=== PATIENT | female | born 1940 | race Caucasian/White ===

== ENCOUNTER 2018-02-26 12:03 | Inpatient (IN) ==
[2018-03-02 11:56] VITALS: BP 125/78
== END 2018-03-02 13:20 | disposition home health service (06) | DRG 391 ==
LOC: N.ED 12:03 → N.EDINP 17:56 → N.TELES 18:49
PROVIDERS: ADMIT Family Medicine; ATTEND Family Medicine

== ENCOUNTER 2019-07-11 17:14 | Inpatient (IN) ==
[2019-07-11] MEDS ORDERED: ALBUTEROL/IPRATROPIUM 3 ML NEB RESP TX STA (18:04)
[2019-07-11] MEDS ORDERED: ONDANSETRON 4 MG/2 ML VIAL IV STA (18:04)
[2019-07-11] MEDS ORDERED: FUROSEMIDE 40 MG/4 ML VIAL IV STA (18:04)
[2019-07-11 19:12] LABS: Basophils % 0.4 % (0.0-0.8); Eosinophils # 0.4 10*3/uL (0.0-0.87); Eosinophils % 4.7 % (0.00-10.9); Hematocrit 43.2 VOL% (35.7-47.0); Hemoglobin 14.8 GM/DL (12.0-16.0); Immature Granulocytes % 0.4 %; Immature Granulocytes Absolute 0.03 #; Lymphocytes # 1.9 10*3/uL (1.4-4.0); Lymphocytes % 24.5 % (21.3-54.2); Mean Corpuscular HGB Conc 34.3 GM/DL (32-36); Mean Corpuscular Volume 87.8 FL (87-102); Mean Platelet Volume 10.1 FL (9.6-12.0); Monocytes % 10.5 % (1.7-12.7); Neutrophils % 59.5 % (38.7-73.9); Platelet Count 238 T/CUMM (130-400); Red Blood Count 4.92 MC/CUMM (3.8-5.5); Red Cell Distribution Width 13.3 % (9.3-17.3); White Blood Count 7.9 T/CUMM (4-12)
[2019-07-11 19:26] LABS: Apearance,Urine CLEAR (Clear); Bacteria,Urine Many /HPF (Few); Bilirubin,Urine Negative (Negative); Blood, Urine Negative (Negative); Glucose,Urine (UA) Negative (Negative); Ketones,Urine Negative (Negative); Mucus,Urine Occasional /LPF (Occasional); Nitrite,Urine Positive (Negative); Protein,Urine Negative; RBC,Urine <1 /HPF (0-4); Urine Color Yellow (Yellow); Urine Specific Gravity 1.012 (1.001-1.035); Urine Urobilinogen < 2.0 EU/DL (0.2-1.0)
[2019-07-11 19:31] LABS: INR 2.3
[2019-07-11 19:32] LABS: PT Patient Result 25.3 SECS (9.6-12.2)
[2019-07-11 19:55] LABS: Albumin 3.9 G/DL (3.4-5.0); Bilirubin,Total 0.6 MG/DL (0.2-1.0); Calcium 8.9 MG/DL (8.5-10.1); Osmolality,Calculated 286.4 MOS/KG (273-304); Total Protein 6.6 G/DL (6.4-8.3)
[2019-07-11] MEDS: cefTRIAXone 1,000 MG in SODIUM CHLORIDE 0.9% 100 ML IV STA ×2 (20:07→20:18)
[2019-07-11] MEDS ORDERED: ACETAMINOPHEN 325 MG TABLET PO PRN (20:43)
[2019-07-11] MEDS ORDERED: ONDANSETRON 4 MG/2 ML VIAL IV PRN (20:43)
[2019-07-11] MEDS ORDERED: ALBUTEROL/IPRATROPIUM 3 ML NEB RESP TX PRN ×2 (20:43)
[2019-07-11] MEDS ORDERED: MORPHINE 4 MG/1 ML VIAL IV PRN (20:43)
[2019-07-11] MEDS: DONEPEZIL 10 MG TABLET PO SCH (22:11)
[2019-07-11] MEDS: WARFARIN 2.5 MG TABLET PO SCH (22:11)
[2019-07-11] MEDS: SIMVASTATIN 40 MG TABLET PO SCH (22:11)
[2019-07-11] MEDS: SODIUM CHLORIDE 0.9% 1,000 ML IV SCH (22:12)
[2019-07-11] MEDS: MEMANTINE 10 MG TABLET PO SCH (22:12)
[2019-07-11] MEDS: QUEtiapine 25 MG TABLET PO SCH (22:12)
[2019-07-11] MEDS: DOCUSATE SODIUM 100 MG CAPSULE PO SCH (22:12)
[2019-07-12 06:14] LABS: Basophils % 0.3 % (0.0-0.8); Eosinophils # 0.4 10*3/uL (0.0-0.87); Eosinophils % 5.5 % (0.00-10.9); Hematocrit 40.4 VOL% (35.7-47.0); Hemoglobin 13.8 GM/DL (12.0-16.0); Immature Granulocytes % 0.3 %; Immature Granulocytes Absolute 0.02 #; Lymphocytes # 1.8 10*3/uL (1.4-4.0); Lymphocytes % 26.8 % (21.3-54.2); Mean Corpuscular HGB Conc 34.2 GM/DL (32-36); Mean Platelet Volume 10.5 FL (9.6-12.0); Monocytes % 9.9 % (1.7-12.7); Neutrophils % 57.2 % (38.7-73.9); Platelet Count 210 T/CUMM (130-400); Red Blood Count 4.59 MC/CUMM (3.8-5.5); Red Cell Distribution Width 13.4 % (9.3-17.3); White Blood Count 6.7 T/CUMM (4-12)
[2019-07-12 06:39] LABS: Albumin 3.4 G/DL (3.4-5.0); Osmolality,Calculated 288.1 MOS/KG (273-304); Risk Ratio 1.97; Total Protein 6.3 G/DL (6.4-8.3); VLDL CHOLESTEROL 16.4 MG/DL
[2019-07-12 07:03] LABS: Apearance,Urine CLEAR (Clear); Bacteria,Urine Few /HPF (Few); Bilirubin,Urine Negative (Negative); Blood, Urine Negative (Negative); Glucose,Urine (UA) Negative (Negative); Hyaline Casts,Urine 1 /LPF (0-3); Ketones,Urine Negative (Negative); Nitrite,Urine Negative (Negative); Protein,Urine Negative; RBC,Urine 3 /HPF (0-4); Squamous Epithelial Cell,Urine Occasional /HPF (0-10); Urine Color Yellow (Yellow); Urine Urobilinogen < 2.0 EU/DL (0.2-1.0); WBC,Urine 36 /HPF (0-6)
[2019-07-12] MEDS ORDERED: CYANOCOBALAMIN 1000 MCG/1 ML VIAL SUBCUT SCH (09:00)
[2019-07-12] MEDS ORDERED: PANTOPRAZOLE 40 MG VIAL IV SCH (09:00)
[2019-07-12] MEDS: FUROSEMIDE 40 MG/4 ML VIAL IV SCH ×2 (09:17→16:20)
[2019-07-12] MEDS: MULTIVITAMIN (CENTRUM) TABLET PO SCH (09:18)
[2019-07-12] MEDS: ASPIRIN EC 325 MG TABLET PO SCH (09:19)
[2019-07-12] MEDS: DOCUSATE SODIUM 100 MG CAPSULE PO SCH ×2 (09:19→20:46)
[2019-07-12] MEDS: Mirabegron [Myrbetriq] 50 MG PO SCH (09:20)
[2019-07-12] MEDS: amLODIPine 10 MG TABLET PO SCH (09:21)
[2019-07-12] MEDS: PANTOPRAZOLE 40 MG TABLET PO SCH (12:24)
[2019-07-12] MEDS: TRIAMTERENE/HCTZ 37.5-25 MG TABLET PO SCH (12:24)
[2019-07-12] MEDS: CELECOXIB 200 MG CAPSULE PO SCH (12:24)
[2019-07-12] MEDS: MEMANTINE 10 MG TABLET PO SCH ×2 (12:24→20:46)
[2019-07-12] MEDS ORDERED: TUBERCULIN SKIN TEST 0.1 ML SYRINGE INTRADERM ONE (15:53)
[2019-07-12] MEDS: WARFARIN 5 MG TABLET PO SCH (17:52)
[2019-07-12] MEDS: QUEtiapine 25 MG TABLET PO SCH (20:46)
[2019-07-12] MEDS: DONEPEZIL 10 MG TABLET PO SCH (20:46)
[2019-07-12] MEDS: SIMVASTATIN 40 MG TABLET PO SCH (20:46)
[2019-07-12] MEDS: cefTRIAXone 1,000 MG in SYRINGE 1 EACH IV SCH (20:47)
[2019-07-13] MEDS: ASPIRIN EC 325 MG TABLET PO SCH (09:30)
[2019-07-13] MEDS: MULTIVITAMIN (CENTRUM) TABLET PO SCH (09:30)
[2019-07-13] MEDS: DOCUSATE SODIUM 100 MG CAPSULE PO SCH ×2 (09:30→22:09)
[2019-07-13] MEDS: CELECOXIB 200 MG CAPSULE PO SCH (09:30)
[2019-07-13] MEDS: MEMANTINE 10 MG TABLET PO SCH ×2 (09:31→22:19)
[2019-07-13] MEDS: PANTOPRAZOLE 40 MG TABLET PO SCH (09:31)
[2019-07-13] MEDS: TRIAMTERENE/HCTZ 37.5-25 MG TABLET PO SCH (09:31)
[2019-07-13] MEDS: Mirabegron [Myrbetriq] 50 MG PO SCH (09:31)
[2019-07-13] MEDS: amLODIPine 10 MG TABLET PO SCH (09:31)
[2019-07-13] MEDS: FUROSEMIDE 40 MG/4 ML VIAL IV SCH ×2 (09:35→17:28)
[2019-07-13] MEDS: SODIUM CHLORIDE 0.9% 1,000 ML IV SCH (14:43)
[2019-07-13] MEDS: WARFARIN 2.5 MG TABLET PO SCH (17:28)
[2019-07-13] MEDS: DONEPEZIL 10 MG TABLET PO SCH (22:09)
[2019-07-13] MEDS: SIMVASTATIN 40 MG TABLET PO SCH (22:09)
[2019-07-13] MEDS: QUEtiapine 25 MG TABLET PO SCH (22:09)
[2019-07-13] MEDS: cefTRIAXone 1,000 MG in SYRINGE 1 EACH IV SCH (22:09)
[2019-07-14] MEDS: SODIUM CHLORIDE 0.9% 1,000 ML IV SCH (04:44)
[2019-07-14] MEDS: ASPIRIN EC 325 MG TABLET PO SCH (08:57)
[2019-07-14] MEDS: amLODIPine 10 MG TABLET PO SCH (08:58)
[2019-07-14] MEDS: MULTIVITAMIN (CENTRUM) TABLET PO SCH (08:58)
[2019-07-14] MEDS: DOCUSATE SODIUM 100 MG CAPSULE PO SCH ×2 (08:58→21:46)
[2019-07-14] MEDS: PANTOPRAZOLE 40 MG TABLET PO SCH (08:59)
[2019-07-14] MEDS: Mirabegron [Myrbetriq] 50 MG PO SCH (09:00)
[2019-07-14] MEDS: FUROSEMIDE 40 MG/4 ML VIAL IV SCH ×2 (09:01→16:52)
[2019-07-14] MEDS: CELECOXIB 200 MG CAPSULE PO SCH (09:07)
[2019-07-14] MEDS: MEMANTINE 10 MG TABLET PO SCH ×2 (09:07→21:46)
[2019-07-14] MEDS: TRIAMTERENE/HCTZ 37.5-25 MG TABLET PO SCH (09:07)
[2019-07-14] MEDS ORDERED: MAGNESIUM SULF RIDER 2 GM in PREMIX 1 EACH IV PRN (10:30)
[2019-07-14] MEDS ORDERED: MAGNESIUM SULF RIDER 4 GM in PREMIX 1 EACH IV PRN (10:30)
[2019-07-14 12:50] LABS: Calcium 9.2 MG/DL (8.5-10.1)
[2019-07-14] MEDS: POTASSIUM CHLORIDE 20 MEQ TABLET PO PRN ×4 (13:07→18:31)
[2019-07-14] MEDS ORDERED: POTASSIUM CHLORIDE RIDER 10 MEQ in PREMIX 1 EACH IV PRN (13:50)
[2019-07-14] MEDS: WARFARIN 2.5 MG TABLET PO SCH (18:31)
[2019-07-14] MEDS: cefTRIAXone 1,000 MG in SYRINGE 1 EACH IV SCH (21:46)
[2019-07-14] MEDS: DONEPEZIL 10 MG TABLET PO SCH (21:46)
[2019-07-14] MEDS: QUEtiapine 25 MG TABLET PO SCH (21:47)
[2019-07-14] MEDS: SIMVASTATIN 40 MG TABLET PO SCH (21:47)
[2019-07-15 05:42] LABS: Basophils % 0.4 % (0.0-0.8); Eosinophils # 0.4 10*3/uL (0.0-0.87); Eosinophils % 4.8 % (0.00-10.9); Hematocrit 43.4 VOL% (35.7-47.0); Hemoglobin 15.2 GM/DL (12.0-16.0); Immature Granulocytes % 0.2 %; Immature Granulocytes Absolute 0.02 #; Lymphocytes # 2.5 10*3/uL (1.4-4.0); Lymphocytes % 30.9 % (21.3-54.2); Mean Corpuscular Volume 86.3 FL (87-102); Mean Platelet Volume 10.6 FL (9.6-12.0); Neutrophils % 51.7 % (38.7-73.9); Platelet Count 212 T/CUMM (130-400); Red Blood Count 5.03 MC/CUMM (3.8-5.5); Red Cell Distribution Width 12.9 % (9.3-17.3); White Blood Count 8.1 T/CUMM (4-12)
[2019-07-15 05:57] LABS: INR 1.6; PT Patient Result 17.4 SECS (9.6-12.2)
[2019-07-15 06:22] LABS: Albumin 3.2 G/DL (3.4-5.0); Bilirubin,Total 0.7 MG/DL (0.2-1.0); Calcium 9.1 MG/DL (8.5-10.1); Osmolality,Calculated 282.8 MOS/KG (273-304); Total Protein 6.9 G/DL (6.4-8.3)
[2019-07-15] MEDS: FUROSEMIDE 40 MG/4 ML VIAL IV SCH ×2 (09:07→16:08)
[2019-07-15] MEDS: CELECOXIB 200 MG CAPSULE PO SCH (09:07)
[2019-07-15] MEDS: DOCUSATE SODIUM 100 MG CAPSULE PO SCH ×2 (09:07→22:47)
[2019-07-15] MEDS: MULTIVITAMIN (CENTRUM) TABLET PO SCH (09:07)
[2019-07-15] MEDS: TRIAMTERENE/HCTZ 37.5-25 MG TABLET PO SCH (09:07)
[2019-07-15] MEDS: ASPIRIN EC 325 MG TABLET PO SCH (09:07)
[2019-07-15] MEDS: POTASSIUM CHLORIDE 20 MEQ TABLET PO PRN ×4 (09:07→17:52)
[2019-07-15] MEDS: PANTOPRAZOLE 40 MG TABLET PO SCH (09:07)
[2019-07-15] MEDS: amLODIPine 10 MG TABLET PO SCH (09:07)
[2019-07-15] MEDS: MEROPENEM 500 MG in SODIUM CHLORIDE 0.9% 100 ML IV SCH ×2 (09:40→22:47)
[2019-07-15] MEDS: Mirabegron [Myrbetriq] 50 MG PO SCH (09:40)
[2019-07-15] MEDS: MEMANTINE 10 MG TABLET PO SCH ×2 (09:52→22:47)
[2019-07-15] MEDS: WARFARIN 5 MG TABLET PO SCH (17:44)
[2019-07-15] MEDS: QUEtiapine 25 MG TABLET PO SCH (22:46)
[2019-07-15] MEDS: DONEPEZIL 10 MG TABLET PO SCH (22:46)
[2019-07-15] MEDS: SIMVASTATIN 40 MG TABLET PO SCH (22:46)
[2019-07-16] MEDS: SODIUM CHLORIDE 0.9% 1,000 ML IV SCH ×2 (07:35→07:50)
[2019-07-16] MEDS: MULTIVITAMIN (CENTRUM) TABLET PO SCH (09:54)
[2019-07-16] MEDS: TRIAMTERENE/HCTZ 37.5-25 MG TABLET PO SCH (09:54)
[2019-07-16] MEDS: ASPIRIN EC 325 MG TABLET PO SCH (09:54)
[2019-07-16] MEDS: DOCUSATE SODIUM 100 MG CAPSULE PO SCH ×2 (09:54→20:47)
[2019-07-16] MEDS: FUROSEMIDE 40 MG/4 ML VIAL IV SCH ×2 (09:54→15:42)
[2019-07-16] MEDS: MEMANTINE 10 MG TABLET PO SCH ×2 (09:54→20:46)
[2019-07-16] MEDS: CELECOXIB 200 MG CAPSULE PO SCH (09:54)
[2019-07-16] MEDS: PANTOPRAZOLE 40 MG TABLET PO SCH (09:54)
[2019-07-16] MEDS: Mirabegron [Myrbetriq] 50 MG PO SCH (09:55)
[2019-07-16] MEDS: amLODIPine 10 MG TABLET PO SCH (09:55)
[2019-07-16] MEDS: MEROPENEM 500 MG in SODIUM CHLORIDE 0.9% 100 ML IV SCH ×2 (09:55→20:47)
[2019-07-16] MEDS: WARFARIN 2.5 MG TABLET PO SCH (17:27)
[2019-07-16] MEDS: POTASSIUM CHLORIDE 20 MEQ TABLET PO PRN ×2 (20:47→23:07)
[2019-07-16] MEDS: SIMVASTATIN 40 MG TABLET PO SCH (20:47)
[2019-07-16] MEDS: QUEtiapine 25 MG TABLET PO SCH (20:47)
[2019-07-16] MEDS: DONEPEZIL 10 MG TABLET PO SCH (20:47)
[2019-07-17] MEDS: POTASSIUM CHLORIDE 20 MEQ TABLET PO PRN (03:52)
[2019-07-17 05:47] LABS: Basophils % 0.5 % (0.0-0.8); Eosinophils # 0.5 10*3/uL (0.0-0.87); Eosinophils % 6.6 % (0.00-10.9); Hemoglobin 15.3 GM/DL (12.0-16.0); Immature Granulocytes % 0.2 %; Immature Granulocytes Absolute 0.02 #; Lymphocytes # 2.5 10*3/uL (1.4-4.0); Lymphocytes % 30.8 % (21.3-54.2); Mean Corpuscular HGB Conc 34.8 GM/DL (32-36); Mean Corpuscular Volume 87.5 FL (87-102); Mean Platelet Volume 10.7 FL (9.6-12.0); Monocytes % 10.6 % (1.7-12.7); Neutrophils % 51.3 % (38.7-73.9); Platelet Count 240 T/CUMM (130-400); Red Blood Count 5.03 MC/CUMM (3.8-5.5)
[2019-07-17 06:23] LABS: Calcium 9.1 MG/DL (8.5-10.1); Osmolality,Calculated 287.5 MOS/KG (273-304)
[2019-07-17] MEDS ORDERED: POTASSIUM CHLORIDE 20 MEQ/15 ML UDCUP PO ONE (09:00)
[2019-07-17] MEDS ORDERED: ERTAPENEM 1,000 MG in SODIUM CHLORIDE 0.9% 100 ML IV ONE (09:00)
[2019-07-17] MEDS: PANTOPRAZOLE 40 MG TABLET PO SCH (09:47)
[2019-07-17] MEDS: MEMANTINE 10 MG TABLET PO SCH (09:47)
[2019-07-17] MEDS: MULTIVITAMIN (CENTRUM) TABLET PO SCH (09:47)
[2019-07-17] MEDS: CELECOXIB 200 MG CAPSULE PO SCH (09:47)
[2019-07-17] MEDS: DOCUSATE SODIUM 100 MG CAPSULE PO SCH (09:47)
[2019-07-17] MEDS: ASPIRIN EC 325 MG TABLET PO SCH (09:47)
[2019-07-17] MEDS: TRIAMTERENE/HCTZ 37.5-25 MG TABLET PO SCH (09:47)
[2019-07-17] MEDS: amLODIPine 10 MG TABLET PO SCH (09:47)
[2019-07-17] MEDS: Mirabegron [Myrbetriq] 50 MG PO SCH (09:48)
[2019-07-17] MEDS: SODIUM CHLORIDE 0.9% 1,000 ML IV SCH (09:48)
[2019-07-17] MEDS: FUROSEMIDE 40 MG/4 ML VIAL IV SCH ×2 (09:53→15:59)
[2019-07-17 11:54] VITALS: BP 116/60
== END 2019-07-17 15:59 | disposition hospice, home (50) | DRG 689 ==
LOC: EDBD → EDUNIT# → N.ED 17:14 → N.EDINP 19:42 → INTOOBSV 19:42 → N.2E 20:02
PROVIDERS: ADMIT Family Medicine; ATTEND Family Medicine